=== PATIENT | female | born 1945 | race Caucasian/White ===

== ENCOUNTER 2018-06-23 09:52 | Day surgery (SDC) | payer MEDICARE ==
[~2018-06-23] VITALS: Ht 163 cm; Wt 68.0 kg
[~2018-06-23 09:52] MED LIST: ALBU90OI6 INH; ALBU90OI61 INH; Advil200 M1 PO; CLON.5 PO; CLON1 PO; Desyrel50 MG; FLUO10 PO; FLUO20 PO; GABA600 PO; HYDACE5325 PO; LAMO100 PO; NAPR500 PO; QUET25; TRAZ100 PO
--- NOTE | 2018-06-23 10:27 | NUR ---
History, Chart, Medications and Allergies reviewed before start of procedure. Lungs EXP WHEEZES T/O Patient confirms NPO status and agrees with scheduled surgery. Patient States Post-Procedure ride home has been arranged. Patient states colon prep results clear.
--- NOTE | 2018-06-23 10:38 | NUR ---
MARY CARMEN IN PROGRESS
--- NOTE | 2018-06-23 11:50 | NUR ---
RECEIVED REPORT FROM EKMAR ARENAS) PT AROUSING AND TALKING. SISTER AT BEDSIDE.
--- NOTE | 2018-06-23 11:55 | NUR ---
DR BLACKWOOD IS SPEAKING TO PT/SISTER AT THIS TIME. PT IS ASKING QUESTIONS. NO OTHER CONCERNS OR QUESTIONS VOICED TO THE RN.
--- NOTE | 2018-06-23 12:01 | NUR ---
PT VERY TALKATIVE WITH SISTER.
--- NOTE | 2018-06-23 12:08 | NUR ---
Discharge instructions reviewed with patient. Patient verbalizes understanding. Copy given to patient to take home. SISTER HAS D.C PAPERWORK. NO QUESTIONS OR CONCERNS VOICED. PT IS WEARING GLASSES. DENTURES ALREADY IN MOUTH.
--- NOTE | 2018-06-23 12:13 | NUR ---
PT GETTING DRESSED. PT HAS ALL PERSONAL BELONGINGS.
--- NOTE | 2018-06-23 12:19 | NUR ---
Patient States Post-Procedure ride home has been arranged. Discharged via wheelchair to private car for ride home.
== END 2018-06-23 23:01 | disposition home or self-care (01) ==
LOC: ORSCMMR 09:52 → ORD 11:00 → ORSCMMR 11:00
PROVIDERS: Internal Medicine Gastroenterology
PROC: 0DBM8ZX Excision of Descending Colon, Via Natural or Artificial Opening Endoscopic, Diagnostic (ICD-10-PCS; principal; 2018-06-23 11:00)
PROC: 0DBL8ZX Excision of Transverse Colon, Via Natural or Artificial Opening Endoscopic, Diagnostic (ICD-10-PCS; principal; 2018-06-23 11:00)
DX: Z12.11 Encounter for screening for malignant neoplasm of colon (principal); Z86.010 Personal history of colon polyps; Z80.0 Family history of malignant neoplasm of digestive organs; D12.3 Benign neoplasm of transverse colon; D12.4 Benign neoplasm of descending colon; K57.30 Diverticulosis of large intestine without perforation or abscess without bleeding; Z87.891 Personal history of nicotine dependence; I10 Essential (primary) hypertension; E78.5 Hyperlipidemia, unspecified; J45.909 Unspecified asthma, uncomplicated; Z79.899 Other long term (current) drug therapy
CPT/HCPCS: 88305; J2405; J2704; J7120

== ENCOUNTER 2018-11-02 15:25 | Inpatient (IN) | payer MEDICARE ==
[~2018-11-02] VITALS: Ht 162.6 cm; Wt 66.5 kg
[2018-11-02 15:47] LABS: BASOPHILS ABSOLUTE AUTO 0.09 K/mm3 (0.00-0.23); BASOPHILS PERCENT AUTO 1 % (0-2); EOSINOPHILS ABSOLUTE AUTO 0.21 K/mm3 (0.00-0.68); EOSINOPHILS PERCENT AUTO 2 % (0-6); Hematocrit 34.9 % (33.0-51.0); Hemoglobin 11.4 g/dL (11.5-16.0); IMMATURE GRAN ABSOLUTE AUTO 0.06 K/mm3 (0.00-0.10); IMMATURE GRAN PERCENT AUTO 1 % (0-1); LYMPHOCYTES ABSOLUTE AUTO 1.09 K/mm3 (0.84-5.20); LYMPHOCYTES PERCENT AUTO 8 % (21-46); MONOCYTES ABSOLUTE AUTO 1.16 K/mm3 (0.16-1.47); MONOCYTES PERCENT AUTO 9 % (4-13); Mean Corpuscular HGB 31.1 pg (26.0-34.0); Mean Corpuscular HGB Conc 32.7 g/dL (31.5-36.5); Mean Corpuscular Volume 95 fL (80-100); Mean Platelet Volume 11.2 fL (9.1-12.4); NEUTROPHILS ABSOLUTE AUTO 10.59 K/mm3 (1.96-9.15); NEUTROPHILS PERCENT AUTO 80 % (41-73); Platelet Count 279 K/mm3 (150-400); RDW Coefficient Variation 13.8 % (11.7-14.2); RDW Standard Deviation 48.2 fL (35.1-46.3); Red Blood Cell Count 3.67 M/mm3 (3.80-5.20)
[2018-11-02 16:03] LABS: Source, Urine Clean Catch
[2018-11-02 16:06] LABS: Bilirubin, Urine Neg (Neg); Blood, Urine 1+ (Neg); Glucose Qualitative, Urine Neg (Neg); Ketones, Urine Neg (Neg); Leukocyte Esterase, Urine 2+ (Neg); Nitrite, Urine Neg (Neg); Protein, Urine 2+ (Neg); Urobilinogen, Urine 1+ (Normal); pH, Urine 6.5 (5.0-8.0)
[2018-11-02 16:15] LABS: Appearance, Urine Cloudy (Clear); Color, Urine Yellow (P-Yellow)
[2018-11-02 16:16] LABS: Albumin, Blood 2.7 g/dL (3.4-5.0); Albumin/Globulin Ratio 0.8 (0.8-1.8); Bilirubin, Total 0.4 mg/dL (0.1-1.0); Bun/Creatinine Ratio 12.9 (12.0-20.0); Calcium, Blood 8.4 mg/dL (8.5-10.1); Creatinine, Blood 1.01 mg/dL (0.40-1.00); Globulin, Blood 3.6 g/dL (2.2-4.0); Potassium, Blood 3.1 mmol/L (3.5-5.5); Total Protein, Blood 6.3 g/dL (6.4-8.2)
[2018-11-02 16:16] LABS: Bacteria Few /hpf; Squamous Epithelial Cells Mod /hpf (Few)
[2018-11-02 17:30] LABS: U Amphetamine Screen Not Detected; U Barbituate Screen Not Detected; U Benzodiazapine Screen DETECTED; U Buprenorphine Screen Not Detected; U Cannabinoids Screen Not Detected; U Cocaine Screen Not Detected; U Methadone Screen Not Detected; U Methamphetamine Screen Not Detected; U Opiates Screen Not Detected; U Oxycodone Screen DETECTED; U Phencyclidine Screen Not Detected; U Propoxyphene Screen Not Detected
[2018-11-02] MEDS ORDERED: GRALISE600 MG PO (18:07)
[2018-11-02] MEDS ORDERED: Alprazolam1 MG PO (18:08)
[2018-11-02] MEDS ORDERED: QUET200 PO (18:10)
[2018-11-02] MEDS ORDERED: Prozac40 MG PO (18:11)
[2018-11-02 18:21] LABS: Source, Urine Catheter
[2018-11-02 18:22] LABS: Bilirubin, Urine Neg (Neg); Blood, Urine Neg (Neg); Glucose Qualitative, Urine Neg (Neg); Ketones, Urine Neg (Neg); Leukocyte Esterase, Urine 1+ (Neg); Nitrite, Urine Neg (Neg); Protein, Urine Neg (Neg); Urobilinogen, Urine NORM (Normal); pH, Urine 6.5 (5.0-8.0)
[2018-11-02 18:32] LABS: Appearance, Urine Clear (Clear); Color, Urine Yellow (P-Yellow)
[2018-11-02 18:33] LABS: Bacteria Rare /hpf; Red Blood Cells, Urine 0-2 /hpf (0-2); Squamous Epithelial Cells Few /hpf (Few)
[2018-11-02 19:03] LABS: Magnesium, Blood 1.8 mg/dL (1.6-2.4); Salicylate 5.5 mg/dL (2.8-20.0)
[2018-11-02 19:11] LABS: Thyroid Stimulating Hormone 0.522 uIU/mL (0.360-4.800)
[2018-11-02 19:25] LABS: Creatine Kinase MB 3.8 ng/mL (0.0-3.6); Creatine Kinase MB Index 1.4 (0.0-4.0)
[2018-11-02] MEDS ORDERED: Sulfamethoxazo1 EAC4 (20:12)
[2018-11-03 04:29] LABS: Hemoglobin 10.4 g/dL (11.5-16.0); Mean Corpuscular HGB 30.7 pg (26.0-34.0); Mean Corpuscular HGB Conc 32.5 g/dL (31.5-36.5); Mean Corpuscular Volume 94 fL (80-100); Mean Platelet Volume 11.4 fL (9.1-12.4); Platelet Count 284 K/mm3 (150-400); RDW Coefficient Variation 13.8 % (11.7-14.2); RDW Standard Deviation 48.3 fL (35.1-46.3); Red Blood Cell Count 3.39 M/mm3 (3.80-5.20); White Blood Cell Count 9.82 K/mm3 (4.00-11.30)
[2018-11-03 04:51] LABS: Alanine Aminotransfer (ALT/SGP 8 U/L (12-78); Albumin, Blood 2.4 g/dL (3.4-5.0); Albumin/Globulin Ratio 0.7 (0.8-1.8); Alk Phos 83 U/L (50-136); Anion Gap 5 mmol/L (6-16); Aspartate Aminotrans (AST/SGOT 17 U/L (12-37); Bilirubin, Total 0.4 mg/dL (0.1-1.0); Blood Urea Nitrogen 9 mg/dL (8-24); Bun/Creatinine Ratio 11.9 (12.0-20.0); CO2, Blood 26 mmol/L (21-32); Calcium, Blood 8.3 mg/dL (8.5-10.1); Chloride, Blood 112 mmol/L (98-108); Creatinine, Blood 0.76 mg/dL (0.40-1.00); Globulin, Blood 3.3 g/dL (2.2-4.0); Glomerular Filtration Rate >60 (60-); Glucose, Blood 89 mg/dL (70-99); Potassium, Blood 4.2 mmol/L (3.5-5.5); Sodium, Blood 143 mmol/L (136-145); Total Protein, Blood 5.7 g/dL (6.4-8.2)
--- NOTE | 2018-11-03 06:01 | NUR ---
SHIFT SUMMARY PT IN ROOM SLEEPING COMFORTABLY AT THIS TIME. NO ACUTE CHANGES IN STATUS SINCE ARRIVAL. PT SLEPT WELL AND DENIED NEEDS OTHER THAN OCCASIONAL BATHROOM NEEDS. PT IS SBA TO RR AND IS SLIGHTLY UNSTEADY ON FEET UPON FIRST STANDING. RESP EVEN UNLABORED ON RA W/ SATS >92%. PT DENIED PAIN OR SOB T/O NIGHT. NS INFUING IN PIV AT 75ML/HR, SITE WNL. PT IS AOX4 W/ SHORT OCCASIONAL CONFUSION BUT IS EASILY REORIENTED. DENIED OTHER NEEDS. BED ALARM ON FOR SAFETY, CALL LIGHT IN REACH.
--- NOTE | 2018-11-03 08:15 | NUR ---
PT LAYING IN BED AWAKE A/OX3, FOLLOWS COMMANDS WELL, BUT DOES NOT REMEMBER COMING TO HOSPITAL LAST NIGHT, AND THOUGHT SHE HAS BEEN HERE 3 DAYS, SHE IS A BIT SHAKEY WHICH SHE SAYS IS NOT NORMAL FOR HER, AND HAS A BAD H/A, TYLENOL GIVEN, LUNGS ARE A BIT COURSE WITH SOME EXP WHEEZING, NO COUGH NOTED, IS CURRENTLY ON R/A, HAD A BREATHING TX, HRR, TELE IN PLACE RUNNING SR PER MONITOR, SEE STRIP, NO EDEMA NOTED, PPP+2, CAP REFILL <3 SEC, VS STABLE, AFEBRILE, IV SITE IS CLEAR AND PATENT, BTX4, ABD FLAT SOFT NONTENDER, SKIN HAS LEFT ELBOW WOUND, MAEW, SAHRA, CALL LIGHT IN REACH.
--- NOTE | 2018-11-03 11:20 | NUR ---
PT VERY TEARFUL, NOT COPING WITH HOSPITAL SOUNDS, STATES HER IV PUMP HAS BEEN ALARMING, THIS WAS TAKEN CARE OF, BUT SHE IS FIXATING ON IT. SHE ACKNOWLEGES SHE IS CONFUSED. GAVE HER A XANAX TO HELP WITH ANXIETY, CALLED FOR PAIN MEDS, RECIEVED ORDER FOR MARCO A. MALIHA IN ROOM CHATTING WITH HER SHE SEEMS TO BE CALMING. SHE EVEN MENTIONED LEAVING HOSPITAL BECAUSE IT ISN'T RIGHT THAT A PUMP SHOULD EVER MAKE NOISE. WAS ABLE TO CALM HER AND IS DOING BETTER AT THIS TIME. WILL MEDICATE FOR PAIN. CALL LIGHT IN REACH, BUT SHE STATES SHE COULDN'T REMEMBER HOW TO USE IT AFTER ME EXPLAINING IT THIS AM.
--- NOTE | 2018-11-03 13:34 | NUR ---
Patient is sitting up in bed and crying and in a panic. I sit with patient as she talks about the beeping of her ""IV pole." I redirect patient to discuss her family, her harini and her medical issues. Every few minutes patient would loop back to the beeping sound (Which never occured during my visit) . I would redirect. I listen to patient's concerns and fears about the beeps. I provided empathic listening, anxiety containment, pastoral addictions counselor and a calming presence. Patient responded well and showed signs of reduced stress. When patient's sister arrived, I left patient. I will continue to remain available to patient and family.
--- NOTE | 2018-11-03 14:15 | NUR ---
PT ASSISTED TO AND FROM RR
--- NOTE | 2018-11-03 18:00 | NUR ---
PT SEEMS IMPROVED FAR HER COPING, AND ANXIETY, BUT IS STILL CONTINUING WITH UNREASONABLE PERCEPTION REGARDING HOSPITAL NOISES, AND THINKS IT IS UNACCEPTABLE TO HAVE AN IV PUMP ALARMING, AND WE SHOULD HAVE WIRELESS ALARMS THAT WILL NOTIFY NURSE BUT BE SILENT IN THE ROOM AND WILL NOT DISTURB THE PT. ATTEMPTED TO DIVERT HER ATTENTION TO OTHER THINGS. HER SISTER WAS IN AND GAVE S.S. A BETTER UNDERSTANDING OF HER HX. NOT SHAKING MUCH THIS AM, LUNGS CONTINUE WITH EXP WHEEZING. CALL LIGHT IN REACH, REORIENTED HER TO IT NUMEROUS TIMES TODAY.
--- NOTE | 2018-11-03 23:43 | NUR ---
CARE ASSUMPTION PT A&O X4. PT REPORTS DIFFICULTY UNDERSTANDING THINGS BUT STATING "I'M FINALLY REMEMBERING AND GETTING THE HANG OF THINGS." PT C/O PAIN IN L ELBOW, L SHOULDER, AND L SIDE OF NECK. MEDICATING PT PER EMAR. PT'S L ELBOW IS WRAPPED W/ BOOKER WRAP. MONITOR SHOWS NSR, HR 70-90. VSS. PT IN BED W/ CALL LIGHT IN REACH. WILL CONTINUE TO MONITOR AND PROVIDE CARE.
[2018-11-04 04:08] LABS: BASOPHILS ABSOLUTE AUTO 0.09 K/mm3 (0.00-0.23); BASOPHILS PERCENT AUTO 1 % (0-2); EOSINOPHILS ABSOLUTE AUTO 0.51 K/mm3 (0.00-0.68); EOSINOPHILS PERCENT AUTO 6 % (0-6); Hematocrit 32.2 % (33.0-51.0); Hemoglobin 10.5 g/dL (11.5-16.0); IMMATURE GRAN ABSOLUTE AUTO 0.03 K/mm3 (0.00-0.10); IMMATURE GRAN PERCENT AUTO 0 % (0-1); LYMPHOCYTES ABSOLUTE AUTO 2.17 K/mm3 (0.84-5.20); LYMPHOCYTES PERCENT AUTO 25 % (21-46); MONOCYTES ABSOLUTE AUTO 0.76 K/mm3 (0.16-1.47); MONOCYTES PERCENT AUTO 9 % (4-13); Mean Corpuscular HGB Conc 32.6 g/dL (31.5-36.5); Mean Corpuscular Volume 95 fL (80-100); Mean Platelet Volume 11.4 fL (9.1-12.4); NEUTROPHILS ABSOLUTE AUTO 5.18 K/mm3 (1.96-9.15); NEUTROPHILS PERCENT AUTO 59 % (41-73); Platelet Count 266 K/mm3 (150-400); RDW Standard Deviation 49.3 fL (35.1-46.3); Red Blood Cell Count 3.39 M/mm3 (3.80-5.20); White Blood Cell Count 8.74 K/mm3 (4.00-11.30)
[2018-11-04 04:29] LABS: Alanine Aminotransfer (ALT/SGP 10 U/L (12-78); Albumin, Blood 2.3 g/dL (3.4-5.0); Albumin/Globulin Ratio 0.7 (0.8-1.8); Alk Phos 84 U/L (50-136); Anion Gap 4 mmol/L (6-16); Aspartate Aminotrans (AST/SGOT 24 U/L (12-37); Bilirubin, Total 0.3 mg/dL (0.1-1.0); Blood Urea Nitrogen 9 mg/dL (8-24); Bun/Creatinine Ratio 15.1 (12.0-20.0); CO2, Blood 26 mmol/L (21-32); Calcium, Blood 8.6 mg/dL (8.5-10.1); Chloride, Blood 113 mmol/L (98-108); Globulin, Blood 3.3 g/dL (2.2-4.0); Glomerular Filtration Rate >60 (60-); Glucose, Blood 105 mg/dL (70-99); Sodium, Blood 143 mmol/L (136-145); Total Protein, Blood 5.6 g/dL (6.4-8.2)
--- NOTE | 2018-11-04 04:34 | NUR ---
SHIFT SUMMARY PT A&O X4. MONITOR SHOWS NSR, HR 70-95. VSS. NO EVENTS/CHANGES OVER NIGHT. L ARM REMAINS IN ARM SLING. MEDICATING FOR PAIN PER EMAR/PT REQUEST. WILL CONTINUE TO MONITOR AND PROVIDE CARE UNTIL REPORT OFF TO DAY SHIFT RN.
--- NOTE | 2018-11-04 09:15 | NUR ---
PT SITTING UP ON THE SIDE OF THE BED EATING HER BREAKFAST, A/OX3, PLEASANT TODAY, SEEMS MORE BRIGHT EYED AND MORE ALERT, SEEMS MORE RATIONAL THAN YESTERDAY, COOPERATIVE WITH CARE, FOLLOWS COMMANDS WELL, LUNGS HAVE EXP WHEEZE T/O, NO COUGH NOTED OR REPORTED, SHE IS CURRENTLY ON R/A, RESP EVEN AND UNLABORED, HRR, TELE IN PLACE RUNNING SR PER MONITOR, SEE STRIP, NO EDEMA NOTED, PPP+2, CAP REFILL <3SEC, VS STABLE, AFEBRILE, IV SITE IS CLEAR AND PATENT TO RIGHT WRIST, INFUSING NS AT 75MLS/HR, YESTERDAY SHE WAS FIXATED ON THE OCC BEEPING OF THE IV PUMP, AND DISCUSSED IT ALL DAY, IT WAS NOT MENTIONED THIS AM, SHE REPORTS SHE SLEPT VERY WELL LAST NIGHT, BUT IS HAVING PAIN IN HER ARM THIS AM, RATES 6/10, SHE WAS MEDICATED FOR IT, SHE HAS A SPLINT ON HER ARM WITH A SLING, BTX4, ABD FLAT SOFT NONTENDER, VOIDS WITHOUT DIFF, SKIN HAS AN ABRASION TO HER LEFT ELBOW WITH REDNESS AROUND IT, SAHRA ORTIZ, CALL LIGHT IN REACH, REINFORCED HOW TO USE IT IF ANY NEEDS.
--- NOTE | 2018-11-04 12:24 | NUR ---
PT WORKED WITH P.T. AMBULATED OUT IN THE CARDOZO USING A CANE, SHE STATES THE CANE REALLY HELPED TO BE STEADY, SITTING UP IN CHAIR FOR LUNCH. CALL LIGHT IN REACH.
[2018-11-04 14:13] LABS: BASOPHILS PERCENT AUTO 1 % (0-2); EOSINOPHILS PERCENT AUTO 5 % (0-6); Hematocrit 34.7 % (33.0-51.0); Hemoglobin 11.2 g/dL (11.5-16.0); IMMATURE GRAN ABSOLUTE AUTO 0.04 K/mm3 (0.00-0.10); IMMATURE GRAN PERCENT AUTO 0 % (0-1); LYMPHOCYTES ABSOLUTE AUTO 1.89 K/mm3 (0.84-5.20); LYMPHOCYTES PERCENT AUTO 19 % (21-46); MONOCYTES ABSOLUTE AUTO 0.73 K/mm3 (0.16-1.47); MONOCYTES PERCENT AUTO 7 % (4-13); Mean Corpuscular HGB 30.6 pg (26.0-34.0); Mean Corpuscular HGB Conc 32.3 g/dL (31.5-36.5); Mean Corpuscular Volume 95 fL (80-100); NEUTROPHILS ABSOLUTE AUTO 6.62 K/mm3 (1.96-9.15); NEUTROPHILS PERCENT AUTO 67 % (41-73); RDW Coefficient Variation 14.1 % (11.7-14.2); RDW Standard Deviation 49.2 fL (35.1-46.3); Red Blood Cell Count 3.66 M/mm3 (3.80-5.20); White Blood Cell Count 9.88 K/mm3 (4.00-11.30)
[2018-11-04 14:27] LABS: Alanine Aminotransfer (ALT/SGP 13 U/L (12-78); Albumin, Blood 2.6 g/dL (3.4-5.0); Albumin/Globulin Ratio 0.7 (0.8-1.8); Alk Phos 99 U/L (50-136); Anion Gap 7 mmol/L (6-16); Aspartate Aminotrans (AST/SGOT 26 U/L (12-37); Bilirubin, Total 0.2 mg/dL (0.1-1.0); Blood Urea Nitrogen 6 mg/dL (8-24); Bun/Creatinine Ratio 10.8 (12.0-20.0); CO2, Blood 24 mmol/L (21-32); Calcium, Blood 8.9 mg/dL (8.5-10.1); Chloride, Blood 111 mmol/L (98-108); Creatinine, Blood 0.55 mg/dL (0.40-1.00); Globulin, Blood 3.7 g/dL (2.2-4.0); Glomerular Filtration Rate >60 (60-); Glucose, Blood 126 mg/dL (70-99); Potassium, Blood 4.2 mmol/L (3.5-5.5); Sodium, Blood 142 mmol/L (136-145); Total Protein, Blood 6.3 g/dL (6.4-8.2)
[2018-11-04 15:00] LABS: Mean Platelet Volume 11.4 fL (9.1-12.4); Platelet Count 270 K/mm3 (150-400)
--- NOTE | 2018-11-04 15:38 | NUR ---
pt is medical status and will be transferring to medical floor. will take her via wheelchair, she is aware, call light in reach.
--- NOTE | 2018-11-04 16:38 | NUR ---
report given to Gabe VALEDS. pt is being taken to medical via wheelchair, with final inspector and tester in attendence, all belongings went with pt.
--- NOTE | 2018-11-04 18:05 | NUR ---
PT ARRIVED TO ROOM 326 VIA W/C FROM PCU. PT A/OX4, PLEASANT AND COOPERATIVE. PT REPORTS 8/10 PAIN TO LEFT ARM, PRN NORCO GIVEN. ARM WITH SPLINT IN PLACE AND SLING ON. LS WITH EXP WHEEZES, ON RA. HRR. PT AMBULATED TO BATHROOM INDEP. PT STARTED BAG ON IVF PER ORDERS. PT ORIENTED TO ROOM AND CALL SYSTEM. CALL LIGHT IN REACH.
--- NOTE | 2018-11-05 05:48 | NUR ---
SHIFT SUMMARY: 73 Y/O FEMALE RESTED COMFORTABLY ALL SHIFT WHILE WEARING LFA SPLINT IN ELBOW AT 45 DEGREE ANGLE (READJUSTED X 1 BY THIS NURSE), PT ALSO REMOVED RING FROM LEFT HAND #4 DIGIT AND PLACED IN PERSONAL BELONGINGS (DECLINED HAVE PLACED IN SAFE VIA SECURITY), ABLE MOVE LEFT HAND FINGERS, CAPILLARY REFILL LESS THAN 3 SECONDS, C/O LEFT ELBOW PAIN 6/10 WITH NORCO 7.5/325MG PO GIVEN WITH RELIEF FELT (BP WAS 179/95 AT 0450 AND THEN 159/85 AT 0545), ABLE AMBULATE BATHROOM AND BACK X 1 STANDBY ASSIST WITH GAIT SLOW AND STEADY, BED LOW POSITION, CALL LIGHT AT SIDE.
[2018-11-05] MEDS ORDERED: CEPH500 PO (11:29)
[2018-11-05] MEDS ORDERED: HYDR1TAB94 PO (11:30)
--- NOTE | 2018-11-05 15:09 | NUR ---
PT DISCHARGED HOME. PT LEFT UNIT VIA WHEELCHAIR. TAXI SERVICE TO PRIVIDE RIDE HOME.
== END 2018-11-05 14:40 | disposition home or self-care (01) | DRG 871 ==
LOC: ER 15:25 → PCU 17:39 → MEDS 17:39 → PCU 19:44 → MEDS 11-04 16:44 → ENPENDDIS 11-05 08:20 → MEDS 11-05 14:40
PROVIDERS: Emergency Medicine; Family Medicine; Internal Medicine; Nurse Practitioner Acute Care; ADMIT Internal Medicine
DX: A41.9 Sepsis, unspecified organism (principal); G92 Toxic encephalopathy; S42.402A Unspecified fracture of lower end of left humerus, initial encounter for closed fracture; N39.0 Urinary tract infection, site not specified; L03.114 Cellulitis of left upper limb; J45.909 Unspecified asthma, uncomplicated; E87.6 Hypokalemia; F41.1 Generalized anxiety disorder; F32.9 Major depressive disorder, single episode, unspecified; F17.210 Nicotine dependence, cigarettes, uncomplicated; Z88.6 Allergy status to analgesic agent; Z88.0 Allergy status to penicillin
CPT/HCPCS: 36415; 70450; 71046; 73200; 76377; 80053; 81001; 82550; 82553; 83605; 83735; 84443; 85025; 85027; 87040; 87086; 93005; 93010; 94640; 94760; 96361; 96365; 97116; 97162; 97530; 99285-25; A9270; G0480; J0690; J0696; J1650; J7030; J7120

== ENCOUNTER 2018-12-11 08:26 | Emergency (ER) | payer MEDICARE ==
[~2018-12-11] VITALS: Ht 162.6 cm; Wt 59.0 kg
[~2018-12-11 08:26] MED LIST changes: +Alprazolam1 MG PO; +CEPH500 PO; +GRALISE600 MG PO; +HYDR1TAB94 PO; +Prozac40 MG PO; +QUET200 PO; +Sulfamethoxazo1 EAC4
[2018-12-11 09:59] LABS: BASOPHILS ABSOLUTE AUTO 0.09 K/mm3 (0.00-0.23); BASOPHILS PERCENT AUTO 1 % (0-2); EOSINOPHILS ABSOLUTE AUTO 0.41 K/mm3 (0.00-0.68); EOSINOPHILS PERCENT AUTO 5 % (0-6); Hematocrit 47.1 % (33.0-51.0); Hemoglobin 14.8 g/dL (11.5-16.0); IMMATURE GRAN ABSOLUTE AUTO 0.02 K/mm3 (0.00-0.10); IMMATURE GRAN PERCENT AUTO 0 % (0-1); LYMPHOCYTES PERCENT AUTO 15 % (21-46); MONOCYTES ABSOLUTE AUTO 0.66 K/mm3 (0.16-1.47); MONOCYTES PERCENT AUTO 7 % (4-13); Mean Corpuscular HGB 28.4 pg (26.0-34.0); Mean Corpuscular HGB Conc 31.4 g/dL (31.5-36.5); Mean Corpuscular Volume 90 fL (80-100); Mean Platelet Volume 11.3 fL (9.1-12.4); NEUTROPHILS ABSOLUTE AUTO 6.47 K/mm3 (1.96-9.15); NEUTROPHILS PERCENT AUTO 72 % (41-73); Platelet Count 306 K/mm3 (150-400); RDW Coefficient Variation 13.8 % (11.7-14.2); RDW Standard Deviation 45.8 fL (35.1-46.3); Red Blood Cell Count 5.21 M/mm3 (3.80-5.20); White Blood Cell Count 8.95 K/mm3 (4.00-11.30)
[2018-12-11 10:29] LABS: Ethanol (Alcohol), Blood, Med <3 mg/dL
[2018-12-11 10:37] LABS: Alanine Aminotransfer (ALT/SGP 12 U/L (12-78); Albumin, Blood 3.1 g/dL (3.4-5.0); Albumin/Globulin Ratio 0.8 (0.8-1.8); Alk Phos 116 U/L (50-136); Anion Gap 6 mmol/L (6-16); Aspartate Aminotrans (AST/SGOT 19 U/L (12-37); Bilirubin, Total 0.2 mg/dL (0.1-1.0); Blood Urea Nitrogen 9 mg/dL (8-24); Bun/Creatinine Ratio 11.5 (12.0-20.0); CO2, Blood 28 mmol/L (21-32); Calcium, Blood 9.1 mg/dL (8.5-10.1); Chloride, Blood 108 mmol/L (98-108); Creatinine, Blood 0.78 mg/dL (0.40-1.00); Free Thyroxine 0.69 ng/dL (0.70-1.60); Globulin, Blood 3.9 g/dL (2.2-4.0); Glomerular Filtration Rate >60 (60-); Glucose, Blood 108 mg/dL (70-99); Sodium, Blood 142 mmol/L (136-145); Thyroid Stimulating Hormone 0.492 uIU/mL (0.360-4.800)
[2018-12-11 10:40] LABS: Acetaminophen, Random <2.0 ug/mL (10.0-30.0)
== END 2018-12-11 13:51 | disposition home or self-care (01) ==
LOC: ER 08:26
PROVIDERS: Emergency Medicine
DX: F41.9 Anxiety disorder, unspecified (principal); S61.511A Laceration without foreign body of right wrist, initial encounter; S61.219A Laceration without foreign body of unspecified finger without damage to nail, initial encounter; F32.9 Major depressive disorder, single episode, unspecified; J45.909 Unspecified asthma, uncomplicated; Z88.0 Allergy status to penicillin; Z88.6 Allergy status to analgesic agent; Z79.899 Other long term (current) drug therapy; Z87.891 Personal history of nicotine dependence
CPT/HCPCS: 36415; 80053; 84439; 84443; 85025; 99284; G0480